=== PATIENT | male | born 1965 | race Two or more races ===

== ENCOUNTER 2020-10-31 09:42 | Emergency (ER) | payer BC ==
[~2020-10-31] VITALS: Ht 167.6 cm; Wt 95.7 kg
[~2020-10-31 09:42] MED LIST: CLON-364 PO; GABA100C PO; LISI-167 PO; VALA10007 PO
--- NOTE | 2020-10-31 10:45 | NUR ---
pt to room from lobby. pt presents to ED with c/o cough and sob x 2 days, states he had covid exposure at work. pt has been covid vaccinated x 2, completed in may of this year. pt is a&o, resps even and unlabored, able to speak in full sentences without difficulty. pt attached to all monitors, nsr on desk monitor with no ectopy noted. call light in reach. awaiting MD and dispo.
[2020-10-31] MEDS ORDERED: ALBUTEROL/IPRATROPIUM 2.5MG/0.5MG, 3 ML ONE (11:06)
[2020-10-31 11:56] VITALS: BP 160/101
--- NOTE | 2020-10-31 12:14 | NUR ---
COVID SWAB COLLECTED BY JORDAN LIRIANO, PT GIVEN DC INSRUCTIONS AND SCRIPT, EDUCATED REGARDING ISOLATION RECOMMENDATIONS FOLLOWING COVID TEST AND RECOMMENDED SUPPLEMENT REGIMEN PER JORDAN LIRIANO'S RECOMMENDATION. 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 SPEECH CLEAR, ABLE TO SPEAK IN FULL SENTENCES WITHOUT DIFFICULTY. PT AMBULATORY TO DC DESK WITH STEADY GAIT, ALL QUESTIONS ANSWERED.
== END 2020-10-31 12:15 | disposition home or self-care (01) ==
LOC: ED 12:09
DX: B34.9 Viral infection, unspecified (principal); Z20.822 Contact with and (suspected) exposure to COVID-19; F17.200 Nicotine dependence, unspecified, uncomplicated; R00.1 Bradycardia, unspecified
CPT/HCPCS: 93005; 99284; U0003; U0005